=== PATIENT | male | born 1970 | race Caucasian/White ===

== ENCOUNTER 2023-01-29 05:39 | Outpatient (CLI) | payer BC ==
[~2023-01-29] VITALS: Ht 182.9 cm; Wt 102.1 kg
== END 2023-01-29 10:27 | disposition home or self-care (01) ==
LOC: PREOP 05:39
PROVIDERS: ATTEND Surgery
DX: Z01.818 Encounter for other preprocedural examination (principal)

== ENCOUNTER 2023-02-05 10:22 | Day surgery (SDC) | payer BC ==
[~2023-02-05] VITALS: Ht 182.9 cm; Wt 102.1 kg
[2023-02-05] MEDS ORDERED: LACTATED RINGERS 1,000 ML 1,000 ML IV STA (10:29)
[2023-02-05] MEDS ORDERED: LIDOCAINE JELLY 2% 6 ML SYRINGE MM PRN (10:30)
[2023-02-05 10:46] VITALS: BP 150/100
[2023-02-05] MEDS ORDERED: MIDAZOLAM INJ 2 MG/2 ML VIAL ONE (11:30)
[2023-02-05] MEDS ORDERED: LIDOCAINE JELLY 2% 6 ML SYRINGE ONE (11:53)
[2023-02-05 12:15] VITALS: BP 92/58
[2023-02-05 12:20] VITALS: BP 88/54
[2023-02-05 12:25] VITALS: BP 107/65
--- NOTE | 2023-02-05 12:27 | Anesthesia-General Post-Op ---
MAC Patient Condition Mental Status/LOC: Same as Preop Cardiovascular: Satisfactory Nausea/Vomiting: Absent Respiratory: Satisfactory Pain: Controlled Complications: Absent Post Op Complications Complications None Follow Up Care/Instructions Patient Instructions None needed. Anesthesiology Discharge Order Discharge Order Patient is doing well, no complaints, stable vital signs, no apparent adverse anesthesia problems. No complications reported per nursing. DAISY PEARSON CRNA Feb 05, 2023 12:27
--- NOTE | 2023-02-05 12:29 | Progress Note-Pre Operative ---
Pre-Operative Progress Note Date of Available H&P: Feb 05, 2023 Date H&P Reviewed: Feb 05, 2023 Time H&P Reviewed: 10:30 History & Physical: No changes noted Pre-Operative Diagnosis: screening o ANTONIO BARBOUR MD Feb 05, 2023 12:29
[2023-02-05] MEDS ORDERED: ONDANSETRON 4 MG ORAL DISSOLVE TABLET PO PRN (12:30)
[2023-02-05] MEDS ORDERED: ONDANSETRON INJECTION 4 MG/2 ML (SDV) IVP PRN (12:30)
--- NOTE | 2023-02-05 12:30 | Progress Note-Post Operative ---
Post-Operative Progess Note Surgeon (s)/Sap Bobj Developer (s) Surgeon ANTONIO BARBOUR MD Sap Bobj Developer: none Pre-Operative Diagnosis screening colo Post-Operative Diagnosis normal colon and rectum Procedure & Operative Findings Date of Procedure 02/05/23 Procedure Performed/Findings colonoscopy Anesthesia Type mac Estimated Blood Loss Estimated blood loss (mL): minimal Specimens/Packing Specimens Removed none ANTONIO BARBOUR MD Feb 05, 2023 12:30
--- NOTE | 2023-02-05 12:30 | Discharge Inst-Surgical ---
D/C Lap Instructions-ANGLE Follow Up 10 years Activity as tolerated High Fiber Diet 25g or more per day Avoid Alcohol, Caffeine, Spicy [place] and Acid foods. Drink 64 fluid oz or more of fluids per day. Symptoms to Report: Fever over 101 degree F, Nausea/Vomiting If any problems/questions: Contact your physician or go to Emergency Room ANTONIO BARBOUR MD Feb 05, 2023 12:30
[2023-02-05 12:50] VITALS: BP 107/65
--- NOTE | 2023-02-05 19:05 | OPERATIVE REPORT ---
DATE OF SERVICE: 02/05/2023 ATTENDING PRIMARY CARE PHYSICIAN: Dr. Oracio Page. PREOPERATIVE DIAGNOSIS: Screening colonoscopy. POSTOPERATIVE DIAGNOSIS: Normal colon and rectum. PROCEDURE: Colonoscopy. SURGEON: Antonio Barbour MD ANESTHESIA: Monitored anesthesia care. ESTIMATED BLOOD LOSS: Minimal. FINDINGS: Normal colon and rectum. DISPOSITION: The patient tolerated the procedure well. INDICATIONS: The patient is a 52-year-old male referred over to us for screening colonoscopy. He has not had a colonoscopy up to this point in his life. He is otherwise doing well, does not report any major issues with diarrhea, nor constipation as well as no red blood per rectum, nor any dark tarry stools. He also does not report any family history of colon cancer. DESCRIPTION OF PROCEDURE: The patient was brought to the endoscopy suite and laid in the left lateral decubitus position. After adequate IV pain and sedative medications and monitored anesthesia care, a digital rectal examination was performed. No significant hemorrhoids were identified. Normal sphincter tone was felt and there were no palpable masses. Prostate gland was palpable and appeared normal. The endoscope was then intubated into the anus, rectum gently insufflated. The endoscope was then advanced through the valves of Mauricio of the rectum with no polyps or any neoplasms identified. Through the sigmoid colon, no diverticulosis identified. The endoscope was then advanced through the remainder of the descending, transverse and ascending colon to the cecum, which were normal. No polyps or any neoplasms identified. The endoscope was then slowly withdrawn while taking a second look and suctioning of residual air with no additional findings. The patient tolerated the procedure well. We will recommend continued medical management with a high-fiber diet with at least 30 grams of fiber daily as well as significant amounts of water to promote soft consistency stools on a daily basis. If he is asymptomatic, he does not need another colonoscopy for another 10 years. Job ID: [id number] DocumentID: [id number] Dictated Date: 02/05/2023 12:15:52 Knitting Machine Operator Date: 02/05/2023 19:03:00 Dictated By: ANTONIO BARBOUR MD
== END 2023-02-05 12:50 | disposition home or self-care (01) ==
LOC: ENDO 10:22
PROVIDERS: ATTEND Surgery
DX: Z12.11 Encounter for screening for malignant neoplasm of colon (principal)